=== PATIENT | female | born 1995 | race Caucasian/White ===

== ENCOUNTER 2020-12-14 19:05 | Emergency (ER) | payer OTHER ==
[~2020-12-14] VITALS: Ht 154.9 cm; Wt 49.9 kg
[2020-12-14] MEDS ORDERED: Cleocin HCl150 MG PO (20:06)
== END 2020-12-14 20:11 | disposition home or self-care (01) ==
LOC: ER 19:05
DX: K03.81 Cracked tooth (principal); K02.9 Dental caries, unspecified
CPT/HCPCS: 96372; 99282-25; A9270; J1885